=== PATIENT | female | born 1940 | race Caucasian/White ===

== ENCOUNTER 2018-11-17 08:24 | Day surgery (SDC) | payer MEDICARE ==
[~2018-11-17 08:24] MED LIST: LIDOcaine 1% 30ml preserv. free vial SQ STA
[2018-11-17 09:49] VITALS: BP 188/91
[2018-11-17] MEDS ORDERED: LIDOcaine 1%/PF 5ML 10 MG/ML VIAL ONE (10:50)
[2018-11-17] MEDS ORDERED: NO HOME MEDS (10:54)
[2018-11-17 10:56] VITALS: BP 190/95
[2018-11-17] MEDS ORDERED: LIDOcaine 2% 5ml jelly ONE (10:58)
[2018-11-17 11:10] VITALS: BP 182/82
[2018-11-17 11:24] VITALS: BP 155/74
[2018-11-17 11:33] VITALS: BP 176/102
[2018-11-17 11:45] VITALS: BP 179/97
== END 2018-11-17 12:00 | disposition home or self-care (01) ==
LOC: SSTAY O 08:24
PROVIDERS: ATTEND Radiology Vascular & Interventional Radiology
DX: C49.22 Malignant neoplasm of connective and soft tissue of left lower limb, including hip (principal)
CPT/HCPCS: 20206; 76942; 88341; 88342; J2001; J3490; 27470; 88173; 88305